=== PATIENT | female | born 1940 | race African-American/Black ===

== ENCOUNTER 2024-01-28 12:32 | Inpatient (IN) | payer OTHER, MEDICARE ==
[~2024-01-28] VITALS: Ht 149.9 cm; Wt 72.6 kg
[2024-01-28] MEDS: SODIUM CHLORIDE 0.9% 1,000 ML IV ONE (14:06)
[2024-01-28 14:38] LABS: BASOPHILS % 0.1 % (0.0-2.0); DIFFERENTIAL COMMENT 0; HEMATOCRIT. 43.1 % (36.0-48.0); HEMOGLOBIN. 12.6 g/dL (12.0-16.0); LYMPHOCYTES % 7.8 % (20.0-50.0); MEAN CORPUSCULAR HEMOGLOBIN 27.7 pg (28.0-32.0); MEAN CORPUSCULAR HGB CONC 29.2 g/dL (31.0-37.0); MEAN CORPUSCULAR VOLUME 94.8 fL (81.0-99.0); MEAN PLATELET VOLUME 8.3 fl (7.4-10.4); MONOCYTES % 9.8 % (2.0-8.0); NEUTROPHILS % 82.3 % (40.0-76.0); PLATELET 68 x1000/uL (130-400); RED BLOOD CELL COUNT 4.54 mill/uL (4.2-5.4); RED CELL DISTRIBUTION WIDTH 16.7 % (11.6-14.6); WHITE BLOOD COUNT 11.9 x1000/uL (4.5-11.0)
[2024-01-28 14:43] LABS: CHLORIDE 105 mEq/L (98-107); SODIUM 136 mEq/L (136-145)
[2024-01-28 14:44] LABS: CALCIUM 9.4 mg/dL (8.7-10.4); CARBON DIOXIDE 21 mEq/L (21-32)
[2024-01-28 14:49] LABS: CREATININE 1.2 mg/dL (0.6-1.0); GLUCOSE 104 mg/dL (70-105); UREA NITROGEN BLOOD 16 mg/dL (9-23)
[2024-01-28 14:50] LABS: INR 1.1; PROTHROMBIN TIME 12.1 sec (9.6-11.0)
[2024-01-28 14:51] LABS: ALANINE AMINOTRANSFERASE 14 IU/L (10-49); ASPARTATE AMINOTRANSFERASE 23 IU/L (<34); PROTEIN TOTAL 6.7 g/dL (6.0-8.3); TROPONIN I HIGH SENSITIVITY 7 ng/L (3.0-34)
[2024-01-28 15:14] LABS: LACTIC ACID 2.4 mmol/L (0.4-2.0)
[2024-01-28 16:11] LABS: TROPONIN I HIGH SENSITIVITY 7 ng/L (3.0-34)
[2024-01-28] MEDS ORDERED: MAGNESIUM/ALUMINUM HYDROXIDE/SIMETHICONE 30ML UDC PO PRN (22:00)
[2024-01-28] MEDS ORDERED: GUAIFENESIN 200MG/10ML SUGAR FREE UDC PO PRN (22:00)
[2024-01-28] MEDS ORDERED: DOCUSATE SODIUM 100MG CAPSULE PO PRN (22:00)
[2024-01-28] MEDS ORDERED: ACETAMINOPHEN 325MG TABLET PO PRN ×2 (22:00)
[2024-01-28] MEDS ORDERED: ONDANSETRON HCL 4MG/2ML INJ IV PRN (22:00)
[2024-01-28] MEDS ORDERED: IPRATROPIUM/ALBUTEROL 0.5-3(2.5)MG/3ML NEB HHN PRN (22:00)
[2024-01-28] MEDS: LACTATED RINGERS 1,000 ML IV ONE (23:45)
[2024-01-28 23:55] LABS: TRIGLYCERIDE 67 mg/dL (0-150); TROPONIN I HIGH SENSITIVITY 11 ng/L (3.0-34)
[2024-01-28 23:56] LABS: ALANINE AMINOTRANSFERASE 12 IU/L (10-49); LDL CHOLESTEROL 101 mg/dL (5-100)
[2024-01-28 23:57] LABS: ALBUMIN 4.1 g/dL (3.2-4.8); ASPARTATE AMINOTRANSFERASE 20 IU/L (<34); BILIRUBIN DIRECT 0.3 mg/dL (<=3.0); BILIRUBIN TOTAL 0.8 mg/dL (0.1-1.0); CHOLESTEROL 193 mg/dL (<200); CREATINE KINASE 41 IU/L (34-145); HDL CHOLESTEROL 70 mg/dL (>65); PROTEIN TOTAL 6.7 g/dL (6.0-8.3)
[2024-01-28 23:59] LABS: T4 FREE 0.86 ng/dL (0.89-1.76); THYROID STIMULATING HORMONE 0.79 uIU/mL (0.55-4.78)
[2024-01-29] MEDS: CLONIDINE 0.1MG TABLET PO PRN (09:10)
[2024-01-29 09:29] VITALS: BP 186/70; PULSE 56; RESP 20; TEMP 36.50292; O2SAT 96
[2024-01-29 09:46] VITALS: BP 186/70; PULSE 56; RESP 20; TEMP 36.5292
[2024-01-29 10:48] LABS: BASOPHILS % 0.1 % (0.0-2.0); EOSINOPHILS % 0.3 % (0.0-5.0); HEMATOCRIT. 36.7 % (36.0-48.0); HEMOGLOBIN. 11.9 g/dL (12.0-16.0); LYMPHOCYTES % 10.1 % (20.0-50.0); MEAN CORPUSCULAR HEMOGLOBIN 28.3 pg (28.0-32.0); MEAN CORPUSCULAR HGB CONC 32.4 g/dL (31.0-37.0); MEAN CORPUSCULAR VOLUME 87.4 fL (81.0-99.0); MEAN PLATELET VOLUME 8.4 fl (7.4-10.4); MONOCYTES % 8.1 % (2.0-8.0); NEUTROPHILS % 81.4 % (40.0-76.0); PLATELET 170 x1000/uL (130-400); RED CELL DISTRIBUTION WIDTH 15.3 % (11.6-14.6)
[2024-01-29 10:52] LABS: CARBON DIOXIDE 27 mEq/L (21-32); CHLORIDE 106 mEq/L (98-107); POTASSIUM 3.5 mEq/L (3.5-5.1); SODIUM 141 mEq/L (136-145)
[2024-01-29 10:53] LABS: CALCIUM 9.4 mg/dL (8.7-10.4)
[2024-01-29 10:58] LABS: CREATININE 0.8 mg/dL (0.6-1.0); GLUCOSE 107 mg/dL (70-105); TROPONIN I HIGH SENSITIVITY 10 ng/L (3.0-34); UREA NITROGEN BLOOD 12 mg/dL (9-23)
[2024-01-29 11:00] LABS: CREATINE KINASE 22 IU/L (34-145); PHOSPHORUS 2.6 mg/dL (2.5-4.9)
[2024-01-29] MEDS ORDERED: OXYBUTYNIN PO (11:46)
[2024-01-29] MEDS ORDERED: BUPR-114 PO (11:46)
[2024-01-29] MEDS ORDERED: ALEN70TA79 PO (11:46)
[2024-01-29] MEDS ORDERED: LEVO100T9 PO (11:46)
[2024-01-29] MEDS ORDERED: BENA40TA91 PO (11:46)
[2024-01-29] MEDS ORDERED: ROSUVASTATIN PO (11:46)
[2024-01-29] MEDS ORDERED: RIVA20TA PO (11:46)
[2024-01-29] MEDS: SODIUM CHLORIDE 0.45% 1,000 ML IV ONE (15:30)
[2024-01-29] MEDS ORDERED: BENAZEPRIL 10MG TABLET PO ONE (15:30)
[2024-01-29 16:00] VITALS: BP 103/69; PULSE 63; RESP 20; TEMP 36.89184; O2SAT 97
[2024-01-29] MEDS ORDERED: LISINOPRIL 40MG TABLET PO SCH (16:00)
[2024-01-29] MEDS: LISINOPRIL 20MG TABLET PO NR (17:31)
[2024-01-29 18:08] LABS: *AMPHETAMINES SCREEN URINE NEGATIVE (NEGATIVE); *BARBITURATES SCREEN URINE NEGATIVE (NEGATIVE); *BENZODIAZEPINES SCREEN URINE NEGATIVE (NEGATIVE)
[2024-01-29 18:09] LABS: *COCAINE SCREEN URINE NEGATIVE (NEGATIVE); CANNABINOID URINE SCREEN NEGATIVE (NEGATIVE); ECSTASY MDMA SCREEN URINE NEGATIVE (NEGATIVE); METHADONE URINE SCREEN NEGATIVE (NEGATIVE); OPIATES URINE SCREEN NEGATIVE (NEGATIVE); PHENCYCLIDINE URINE SCREEN NEGATIVE (NEGATIVE)
[2024-01-29 18:21] LABS: COLOR URINE DARK YELLOW (YELLOW)
[2024-01-29 18:22] LABS: CLARITY URINE CLEAR (CLEAR); GLUCOSE URINE NEGATIVE (NEGATIVE); KETONES URINE NEGATIVE (NEGATIVE); LEUKOCYTE ESTERASE URINE NEGATIVE (NEGATIVE); NITRITE URINE NEGATIVE (NEGATIVE); OCCULT BLOOD URINE NEGATIVE (NEGATIVE); PH URINE 5.5 (4.5-8.0); PROTEIN URINE 2+ (NEGATIVE)
[2024-01-29 18:25] LABS: BACTERIA URINE 1+; SQUAMOUS EPITHELIAL CELL URINE 2+ /lpf (RARE/1+)
[2024-01-29 20:00] VITALS: BP 153/73; PULSE 72; RESP 19; TEMP 36.33624; O2SAT 94
[2024-01-29] MEDS: CEFTRIAXONE 1GM/50ML 50 ML IV NR (20:48)
[2024-01-29] MEDS ORDERED: BUPROPION HCL 150MG TABLET XL 24HR PO SCH (21:00)
[2024-01-29] MEDS: BUPROPION HCL 150MG SR TABLET PO SCH (22:12)
[2024-01-29] MEDS: FAMOTIDINE 20MG TABLET PO SCH (22:12)
[2024-01-29] MEDS: ATORVASTATIN CALCIUM 20MG TABLET PO SCH (22:12)
[2024-01-30 00:35] VITALS: BP 132/59; PULSE 89; RESP 18; TEMP 36.3918
[2024-01-30] MEDS: LEVOTHYROXINE SODIUM 100MCG TABLET PO SCH (07:09)
[2024-01-30 08:00] VITALS: BP 147/61; PULSE 60; RESP 20; TEMP 36.05844; O2SAT 98
[2024-01-30] MEDS: LISINOPRIL 40MG TABLET PO SCH (08:57)
[2024-01-30] MEDS ORDERED: BENAZEPRIL 10MG TABLET PO SCH (09:00)
[2024-01-30 10:12] VITALS: BP 147/61; PULSE 60; TEMP 96.9; O2SAT 99
[2024-01-30 10:33] VITALS: BP 147/61; PULSE 60; TEMP 96.9; O2SAT 99
[2024-01-30] MEDS ORDERED: RIVAROXABAN 20 MG TABLET PO SCH (17:00)
== END 2024-01-30 12:12 | disposition home or self-care (01) | DRG 690 ==
LOC: ER 12:32 → 5WST 20:40 → EDBEDREQ 20:44 → ER 01-29 08:41 → 8WST 01-29 08:59
PROVIDERS: ADMIT Preventive Medicine Clinical Informatics; ATTEND Preventive Medicine Clinical Informatics
DX: N39.0 Urinary tract infection, site not specified (principal); K80.00 Calculus of gallbladder with acute cholecystitis without obstruction; D69.6 Thrombocytopenia, unspecified; I10 Essential (primary) hypertension; F32.A Depression, unspecified; E86.0 Dehydration; I95.9 Hypotension, unspecified; E03.9 Hypothyroidism, unspecified; N28.1 Cyst of kidney, acquired; N20.0 Calculus of kidney; M48.061 Spinal stenosis, lumbar region without neurogenic claudication; K57.30 Diverticulosis of large intestine without perforation or abscess without bleeding; E78.5 Hyperlipidemia, unspecified; R82.71 Bacteriuria
CPT/HCPCS: 36415; 71045; 74176; 76705; 80048; 80053; 80061; 80076; 80305; 80320; 81003; 82306; 82550; 83036; 83605; 83735; 83880; 83930; 84100; 84145; 84439; 84443; 84484; 85025; 86850; 86900; 93005; 99285; C1893; J0696; J7030; G0480